=== PATIENT | female | born 1985 | race Asian ===

== ENCOUNTER 2021-04-09 13:29 | Emergency (ER) | payer OTHER ==
[2021-04-09 14:12] LABS: Hemoglobin 11.5 g/dL (12.0-15.5); Mean Corpuscular HGB CONC 31.7 g/dL (32.0-36.0); Mean Corpuscular Hemoglobin 26.8 pg (27.0-33.0); Mean Corpuscular Volume 84.6 fl (81.6-98.3); Mean Platelet Volume 9.6 fl (7.4-10.4); Platelet Count 265 10x3/uL (150-450); RBC Distribution Width 13.6 % (11.5-14.5); Red Blood Cell (RBC) Count 4.29 10x6/uL (3.90-5.03); White Blood Cell (WBC) Count 23.7 10x3/uL (3.5-10.5)
[2021-04-09 14:27] LABS: ALT (SGPT) 20 U/L (8-55); AST (SGOT) 16 U/L (5-34); Albumin 3.9 g/dL (3.5-5.0); Alkaline Phosphatase 68 U/L (40-110); Anion Gap 11 mmol/L (10-20); BUN (Urea Nitrogen) 19 mg/dL (7.0-18.7); Bilirubin, Total 0.3 mg/dL (0.2-1.2); Calc. Creatinine Clearance 0 mL/min (70-130); Calcium 8.8 mg/dL (7.8-10.44); Carbon Dioxide 23 mmol/L (22-29); Chloride 104 mmol/L (98-107); Globulin 3.4 g/dL (2.4-3.5); Glucose 102 mg/dL (70-105); Potassium 4.4 mmol/L (3.5-5.1); Protein, Total 7.3 g/dL (6.0-8.3); Sodium 134 mmol/L (136-145)
[2021-04-09 14:40] LABS: Band 7 % (5-11); Eosinophils 1 % (0-10); Lymphocytes 4 % (21-51); Neutrophil 88 % (42-75)
[2021-04-09 14:41] LABS: MDiff Complete? YES; Platelet Morphology Comment Appears Adequate; RBC Morphology Normal
[2021-04-09] MEDS ORDERED: Piperacillin/Tazobactam 3.375 GM VIAL ONE (15:16)
[2021-04-09] MEDS ORDERED: Ondansetron PF 4 MG/2 ML Vial IVP PRN (18:00)
[2021-04-09] MEDS ORDERED: Sodium Chloride 0.9% 1,000 ML IV SCH (18:00)
[2021-04-09] MEDS ORDERED: Ondansetron ODT 4 MG TAB SL PRN (18:00)
[2021-04-09] MEDS ORDERED: Piperacillin/Tazobactam 3.375 GM in Sodium Chloride 0.9% 100 ML IVPB SCH ×2 (19:00→20:00)
[2021-04-09] MEDS ORDERED: Vancomycin HCl 1 GM in Sodium Chloride 0.9% 250 ML 250 ML IVPB SCH (21:00)
== END 2021-04-09 17:42 | disposition short-term general hospital (02) ==
LOC: CSHERS 13:29
DX: A41.9 Sepsis, unspecified organism (principal); K62.5 Hemorrhage of anus and rectum
CPT/HCPCS: 36415; 80053; 83605; 85025; 87040; 96365; 96366; 96367; J2543; J3370

== ENCOUNTER 2021-10-11 22:10 | Emergency (ER) | payer OTHER | END 2021-10-12 01:57 | disposition home or self-care (01) | LOC: CSHERS 22:10 | DX: L76.21 Postprocedural hemorrhage of skin and subcutaneous tissue following a dermatologic procedure (principal) | CPT/HCPCS: 99283 ==